=== PATIENT | female | born 1980 | race Caucasian/White ===

== ENCOUNTER 2017-04-23 11:58 | Emergency (ER) | payer BC ==
[~2017-04-23] VITALS: Ht 167.6 cm; Wt 90.7 kg
--- NOTE | 2017-04-23 12:08 | NUR ---
barbara márquez at bedside for eval.
[2017-04-23] MEDS ORDERED: ONDANSETRON 4 MG TAB.RAPDIS SL ONE (12:30)
[2017-04-23] MEDS ORDERED: MORPHINE SULFATE INJ 2 MG/ML DISP.SYRIN IM ONE (12:30)
[2017-04-23] MEDS ORDERED: DIAZEPAM 10 MG TABLET PO ONE (12:30)
[2017-04-23] MEDS ORDERED: DIAZEPAM 5 MG TABLET ONE (12:57)
--- NOTE | 2017-04-23 13:48 | NUR ---
radiology back at bedside for lt shoulder post reduction xray.
--- NOTE | 2017-04-23 14:11 | NUR ---
sling provided post reduction. pt d/c home in stable condition.
[2017-04-23 14:14] VITALS: BP 132/84
== END 2017-04-23 14:16 | disposition home or self-care (01) ==
LOC: ER 12:00
DX: M24.412 Recurrent dislocation, left shoulder (principal); G40.909 Epilepsy, unspecified, not intractable, without status epilepticus; K51.90 Ulcerative colitis, unspecified, without complications
CPT/HCPCS: 73020; A4606; Z7610